=== PATIENT | male | born 1950 | race Caucasian/White ===

== ENCOUNTER 2024-08-19 11:17 | Inpatient (IN) | payer MEDICARE, OTHER ==
[~2024-08-19] VITALS: Ht 188 cm; Wt 103.4 kg
[~2024-08-19 11:17] MED LIST: ASCORBIC ACID500 MG PO; CLOPIDOGREL75 MG PO; CRESTOR10 MG PO; DIOVAN40 MG PO; GLIMEPIRIDE4 MG PO; INVOKANA PO; Insulin Glargine SQ; JANUVIA100 MG PO; LOSARTAN-HCTZ1 EAC2 PO; METFORMIN HCL500 MG PO; METOPROLOL SUCC25 MG PO; METOPROLOL TART50 MG PO; OZEMPIC0.25 MG/0. SC; PLAVIX75 MG PO; PREDNISONE20 MG PO; TESSALON PERLE100 MG PO; ZINC SULFATE50 MG PO; ZOFRAN4 MG PO
[2024-08-19 12:00] VITALS: PULSE 97; RESP 16; TEMP 99.3
[2024-08-19 12:43] LABS: BASOPHILS # (AUTO) 0.1 (0.0-0.1); BASOPHILS % 0.3 % (0.0-1.0); EOSINOPHILS % 0.1 % (0.0-6.0); HEMATOCRIT 42.8 % (38.2-49.6); HEMOGLOBIN 14.1 g/dL (14.0-18.0); LYMPHOCYTES # (AUTO) 1.4 (1.0-3.2); LYMPHOCYTES % 7.7 % (18.0-39.1); MEAN CORPUSCULAR HEMOGLOBIN 29.2 pg (28-32); MEAN CORPUSCULAR HGB CONC 32.9 g/dL (31-35); MEAN CORPUSCULAR VOLUME 88.6 fL (81-99); MONOCYTES # (AUTO) 1.4 (0.2-0.8); MONOCYTES % 7.7 % (4.4-11.3); NEUTROPHILS # (AUTO) 14.7 (2.1-6.9); NEUTROPHILS % 83.3 % (38.7-80.0); PLATELET COUNT 233 x10e3/uL (140-360); RED BLOOD COUNT 4.83 x10e6/uL (4.3-5.7); RED CELL DISTRIBUTION WIDTH 14.4 % (11.7-14.4); WHITE BLOOD COUNT 17.61 x10e3/uL (4.8-10.8)
[2024-08-19 13:02] LABS: ALBUMIN 2.9 g/dL (3.5-5.0); ALBUMIN/GLOBULIN RATIO 0.6 (0.8-2.0); ANION GAP 17.9 mmol/L (8-16); BILIRUBIN,TOTAL 2.2 mg/dL (0.2-1.2); CALCIUM 9.1 mg/dL (8.4-10.2); CREATININE, SERUM 2.11 mg/dL (0.72-1.25); POTASSIUM 3.9 mmol/L (3.5-5.1); TOTAL PROTEIN 7.4 g/dL (6.5-8.1)
[2024-08-19] MEDS: CEFEPIME 2 GM in SODIUM CHLORIDE 0.9% 100 ML IV ONE (13:38)
[2024-08-19 14:24] LABS: INR 1.23; PROTHROMBIN TIME 16.2 seconds (11.9-14.5)
[2024-08-19 14:25] LABS: PARTIAL THROMBOPLASTIN TIME 52.4 seconds (23.8-35.5)
[2024-08-19] MEDS: SODIUM CHLORIDE 0.9% 1000ML 2,470 ML IV SCH (14:33)
[2024-08-19] MEDS: VANCOMYCIN 1.25GM/250 ML (PEG) 250 ML IV ONE (14:46)
[2024-08-19] MEDS ORDERED: ONDANSETRON HCL INJ 2MG/ML 2ML 2 MG/ML VIAL IV PRN (15:00)
[2024-08-19] MEDS ORDERED: Morphine 4mg INJECTION 4 MG/ML INJ IV PRN (15:00)
[2024-08-19 18:23] VITALS: BP 131/82; PULSE 97; RESP 17; TEMP 99.2; O2SAT 99
[2024-08-19] MEDS: ACETAMINOPHEN 325 MG TAB PO ONE (18:31)
[2024-08-19] MEDS: SODIUM CHLORIDE 0.9% 1000ML 1,000 ML IV SCH (18:42)
[2024-08-19 19:58] VITALS: BP 126/63; PULSE 94; RESP 20; TEMP 101.8; O2SAT 97
[2024-08-19 20:00] VITALS: BP 126/63; PULSE 94; RESP 20; TEMP 101.8; O2SAT 97
[2024-08-19] MEDS ORDERED: DEXTROSE 50% SYRINGE 50 ML IV PRN (20:15)
[2024-08-19] MEDS: INSULIN LISPRO 100 UNIT/1 ML 3ML VIAL SQ SCH (21:00)
[2024-08-19] MEDS: BENZONATATE 100 MG CAP PO SCH (22:18)
[2024-08-19] MEDS: ACETAMINOPHEN 325 MG TAB PO PRN (22:24)
[2024-08-19 23:00] VITALS: BP 126/63; PULSE 94; RESP 20; TEMP 101.8
[2024-08-19] MEDS ORDERED: ALBUTEROL/IPRATROPIUM 3 ML NEB NEB PRN (23:45)
[2024-08-19] MEDS ORDERED: HYDROCODONE/APAP 10MG-325MG TAB PO PRN (23:45)
[2024-08-20] VITALS (8 sets, daily range): BP systolic 109–152; BP diastolic 59–69; PULSE 66–93; RESP 18–20; TEMP 97–99.7; O2SAT 95–98
[2024-08-20] MEDS: GABAPENTIN 100 MG CAP PO SCH (06:00)
[2024-08-20 07:06] LABS: BASOPHILS # (AUTO) 0.1 (0.0-0.1); BASOPHILS % 0.5 % (0.0-1.0); EOSINOPHILS # (AUTO) 0.1 (0.0-0.4); EOSINOPHILS % 0.5 % (0.0-6.0); HEMATOCRIT 36.9 % (38.2-49.6); LYMPHOCYTES # (AUTO) 0.7 (1.0-3.2); LYMPHOCYTES % 5.5 % (18.0-39.1); MEAN CORPUSCULAR HEMOGLOBIN 29.2 pg (28-32); MEAN CORPUSCULAR HGB CONC 32.5 g/dL (31-35); MEAN CORPUSCULAR VOLUME 89.8 fL (81-99); MONOCYTES # (AUTO) 0.8 (0.2-0.8); MONOCYTES % 6.9 % (4.4-11.3); NEUTROPHILS # (AUTO) 10.5 (2.1-6.9); PLATELET COUNT 182 x10e3/uL (140-360); RED BLOOD COUNT 4.11 x10e6/uL (4.3-5.7); RED CELL DISTRIBUTION WIDTH 14.4 % (11.7-14.4)
[2024-08-20 07:47] LABS: ANION GAP 16.4 mmol/L (8-16); CALCIUM 8.4 mg/dL (8.4-10.2); CREATININE, SERUM 1.57 mg/dL (0.72-1.25)
[2024-08-20 07:55] LABS: POTASSIUM 3.4 mmol/L (3.5-5.1)
[2024-08-20 08:02] LABS: CHOL/HDL RATIO 5.1 (3.9-4.7)
[2024-08-20] MEDS: METOPROLOL TARTRATE 50 MG TAB PO SCH (08:45)
[2024-08-20] MEDS: ZINC SULFATE 220 MG CAP PO SCH (08:46)
[2024-08-20] MEDS: ASCORBIC ACID 500 MG TAB PO SCH (08:46)
[2024-08-20] MEDS ORDERED: ZINC SULFATE 220 MG CAP PO SCH (09:00)
[2024-08-20] MEDS ORDERED: SIMVASTATIN 20 MG TAB PO SCH (09:00)
[2024-08-20] MEDS ORDERED: PROPOFOL IV EMULSION 10 MG/ML 20 ML VIAL ONE (13:13)
[2024-08-20] MEDS ORDERED: LIDOCAINE HCL 2% LOCAL INJ 5 ML SDV VIAL INJ ONE (13:13)
[2024-08-20] MEDS ORDERED: FENTANYL CITRATE/PF 100MCG/2 ML INJ ONE (13:13)
[2024-08-20] MEDS ORDERED: ONDANSETRON HCL INJ 2MG/ML 2ML 2 MG/ML VIAL ONE (13:28)
[2024-08-20] MEDS: Vancomycin IV 1 GM in SODIUM CHLORIDE 0.9% 250ML 250 ML IV SCH (14:27)
[2024-08-20] MEDS: ATORVASTATIN 40 MG TAB PO SCH (21:13)
[2024-08-20] MEDS: MELATONIN 5 MG TABLET PO PRN (22:02)
[2024-08-21] VITALS (18 sets, daily range): BP systolic 111–148; BP diastolic 53–69; PULSE 60–72; RESP 10–20; TEMP 96.4–98.2; O2SAT 94–100
[2024-08-21 06:07] LABS: BASOPHILS % 0.4 % (0.0-1.0); EOSINOPHILS # (AUTO) 0.2 (0.0-0.4); EOSINOPHILS % 1.4 % (0.0-6.0); HEMATOCRIT 34.3 % (38.2-49.6); HEMOGLOBIN 11.1 g/dL (14.0-18.0); LYMPHOCYTES % 9.2 % (18.0-39.1); MEAN CORPUSCULAR HEMOGLOBIN 29.2 pg (28-32); MEAN CORPUSCULAR HGB CONC 32.4 g/dL (31-35); MEAN CORPUSCULAR VOLUME 90.3 fL (81-99); MONOCYTES # (AUTO) 0.8 (0.2-0.8); NEUTROPHILS # (AUTO) 8.7 (2.1-6.9); NEUTROPHILS % 81.3 % (38.7-80.0); PLATELET COUNT 190 x10e3/uL (140-360); RED CELL DISTRIBUTION WIDTH 14.5 % (11.7-14.4)
[2024-08-21 06:33] LABS: ANION GAP 14.4 mmol/L (8-16); CALCIUM 8.4 mg/dL (8.4-10.2); CREATININE, SERUM 1.47 mg/dL (0.72-1.25)
[2024-08-21 06:42] LABS: POTASSIUM 3.4 mmol/L (3.5-5.1)
[2024-08-21] MEDS: POTASSIUM CHLORIDE 20 MEQ TAB CR PO ONE (18:54)
[2024-08-21] MEDS: LACTATED RINGER'S 1,000 ML INJ SCH (18:55)
[2024-08-22] VITALS (9 sets, daily range): BP systolic 120–143; BP diastolic 60–87; PULSE 65–76; RESP 18–20; TEMP 97.6–98.4; O2SAT 93–100
[2024-08-22 06:24] LABS: ANION GAP 15.4 mmol/L (8-16); CALCIUM 8.1 mg/dL (8.4-10.2); CREATININE, SERUM 1.34 mg/dL (0.72-1.25)
[2024-08-22 06:48] LABS: POTASSIUM 3.4 mmol/L (3.5-5.1)
[2024-08-22 08:17] LABS: ABG HCO3 22 mmol/L (22-26); ABG PCO2 38 mmHg (35-45); ABG PH 7.36 (7.35-7.45); ABG PO2 69 mmHg (80-105); ABG TCO2 23
[2024-08-22] MEDS: CLOPIDOGREL BISULFATE 75 MG TAB PO SCH (09:16)
[2024-08-22 16:13] LABS: BILIRUBIN,URINE SMALL (NEGATIVE); CLARITY,URINE CLEAR (CLEAR); COLOR,URINE YELLOW (YELLOW); GLUCOSE, URINE 500 (NEGATIVE); KETONES,URINE TRACE (NEGATIVE); LEUKOCYTE ESTERASE ,URINE NEGATIVE (NEGATIVE); NITRITE,URINE NEGATIVE (NEGATIVE); PH,URINE 5.5 (5 - 7); PROTEIN,URINE DIPSTICK 2+ (NEGATIVE); URINE UROBILINOGEN 2 mg/dL (0.2 - 1)
[2024-08-22 16:18] LABS: RBC,URINE 0-5 /HPF (0-5); WBC,URINE (MAN) 0-5 /HPF (0-5)
[2024-08-22 16:19] LABS: AMORPHOUS SEDIMENT,URINE FEW; BACTERIA,URINE FEW /HPF; EPITHELIAL CELLS,URINE RARE /LPF
[2024-08-22 16:20] LABS: URIC ACID CRYSTALS,URINE FEW
[2024-08-22 17:06] LABS: EOSINOPHIL SMEAR,URINE NONE SEEN (NONE SEEN)
[2024-08-23] VITALS (7 sets, daily range): BP systolic 126–143; BP diastolic 56–71; PULSE 67–74; RESP 17–20; TEMP 97.9–98.6; O2SAT 96–99
[2024-08-23] MEDS: ASPIRIN 81 MG ENTERIC COATED PO SCH (09:00)
[2024-08-23] MEDS: HEPARIN SOD (PORCINE) 1000 UNIT/ML 30ML ONE (09:13)
[2024-08-23] MEDS: SODIUM CHLORIDE 0.9% 1000ML 2,000 ML ONE (09:14)
[2024-08-23] MEDS: HEPARIN SOD/SOD CHLORIDE 2,000 ML ONE (09:14)
[2024-08-23] MEDS: NITROGLYCERIN/D5W 200 MCG/ML 250 ML ONE (09:14)
[2024-08-23] MEDS: VERAPAMIL HCL 2.5 MG/ML 2 ML VIAL ONE (09:14)
[2024-08-23] MEDS: IOPAMIDOL 370 MG/ML 100 ML INFUS..BTL INJ ONE ×2 (09:15→09:16)
[2024-08-23] MEDS: MIDAZOLAM HCL 2 MG/2 ML VIAL ONE ×3 (09:15→09:16)
[2024-08-23] MEDS: LIDOCAINE HCL 2% LOCAL 20 ML VIAL ONE (09:15)
[2024-08-23] MEDS: FENTANYL CITRATE/PF 100MCG/2 ML INJ ONE ×2 (09:15→09:16)
[2024-08-23] MEDS: ASPIRIN 325 MG TAB ONE (09:16)
[2024-08-23] MEDS: CLOPIDOGREL BISULFATE 75 MG TAB ONE (09:16)
[2024-08-23] MEDS ORDERED: PROPOFOL IV EMULSION 10 MG/ML 20 ML VIAL ONE (11:24)
[2024-08-23] MEDS ORDERED: LIDOCAINE HCL 2% LOCAL INJ 5 ML SDV VIAL INJ ONE (11:24)
[2024-08-23] MEDS ORDERED: FENTANYL CITRATE/PF 100MCG/2 ML INJ ONE (11:25)
[2024-08-23] MEDS ORDERED: SEVOFLURANE INHAL SOLN 250 ML PEN BTL ONE (11:31)
[2024-08-23] MEDS ORDERED: MIDAZOLAM HCL 2 MG/2 ML VIAL ONE (13:16)
[2024-08-23] MEDS: SODIUM CHLORIDE 0.9% 100 ML ONE (15:29)
[2024-08-23] MEDS: PIPERACILLIN/TAZOBACTAM 3.375 GM VIAL ONE (15:29)
[2024-08-23] MEDS: POTASSIUM CHLORIDE 20 MEQ TAB CR PO ONE (18:41)
[2024-08-23] MEDS: SODIUM BICARBONATE 650 MG TAB PO SCH (18:41)
[2024-08-24] VITALS (9 sets, daily range): BP systolic 118–145; BP diastolic 62–86; PULSE 57–70; RESP 17–19; TEMP 97.1–97.7; O2SAT 98–99
[2024-08-24 06:47] LABS: ANION GAP 16.3 mmol/L (8-16); CREATININE, SERUM 1.23 mg/dL (0.72-1.25); POTASSIUM 4.3 mmol/L (3.5-5.1)
[2024-08-24] MEDS: SODIUM BICARBONATE 650 MG TAB PO SCH (09:16)
[2024-08-24] MEDS ORDERED: GABAPENTIN300 MG PO (17:32)
[2024-08-24] MEDS ORDERED: FLOMAX0.4 MG PO (17:33)
[2024-08-24] MEDS ORDERED: SYNJARDY 12.5-1 EACH (17:37)
[2024-08-25] VITALS (10 sets, daily range): BP systolic 126–155; BP diastolic 58–69; PULSE 47–68; RESP 18–20; TEMP 95.7–98.3; O2SAT 95–100
[2024-08-25 06:08] LABS: BASOPHILS # (AUTO) 0.1 (0.0-0.1); BASOPHILS % 0.6 % (0.0-1.0); EOSINOPHILS # (AUTO) 0.2 (0.0-0.4); HEMATOCRIT 35.7 % (38.2-49.6); HEMOGLOBIN 11.5 g/dL (14.0-18.0); LYMPHOCYTES # (AUTO) 1.8 (1.0-3.2); LYMPHOCYTES % 16.5 % (18.0-39.1); MEAN CORPUSCULAR HEMOGLOBIN 28.6 pg (28-32); MEAN CORPUSCULAR HGB CONC 32.2 g/dL (31-35); MEAN CORPUSCULAR VOLUME 88.8 fL (81-99); MONOCYTES # (AUTO) 0.7 (0.2-0.8); NEUTROPHILS % 73.5 % (38.7-80.0); PLATELET COUNT 323 x10e3/uL (140-360); RED BLOOD COUNT 4.02 x10e6/uL (4.3-5.7); RED CELL DISTRIBUTION WIDTH 14.7 % (11.7-14.4)
[2024-08-25 06:51] LABS: CALCIUM 8.7 mg/dL (8.4-10.2); CREATININE, SERUM 1.5 mg/dL (0.72-1.25)
[2024-08-25] MEDS ORDERED: HYDRALAZINE HCL 20 MG/ML VIAL IV PRN (11:30)
[2024-08-25] MEDS: INSULIN LISPRO 100 UNIT/1 ML 3ML VIAL SQ SCH (11:54)
[2024-08-25] MEDS: NIFEDIPINE CR 30 MG TAB PO ONE (12:33)
[2024-08-25] MEDS: GABAPENTIN 300 MG CAP PO SCH (16:28)
[2024-08-25] MEDS: TAMSULOSIN HCL 0.4 MG CAP PO SCH (16:29)
[2024-08-25] MEDS: INSULIN GLARGINE 100 UNITS/ML VIAL SQ SCH (21:27)
[2024-08-26] VITALS (9 sets, daily range): BP systolic 122–155; BP diastolic 65–81; PULSE 64–76; RESP 16–18; TEMP 97.3–99; O2SAT 96–99
[2024-08-26] MEDS: METOPROLOL TARTRATE 25 MG TAB PO SCH (05:42)
[2024-08-26 06:21] LABS: ANION GAP 12.5 mmol/L (8-16); CALCIUM 8.2 mg/dL (8.4-10.2); CREATININE, SERUM 1.18 mg/dL (0.72-1.25); POTASSIUM 3.5 mmol/L (3.5-5.1)
[2024-08-26] MEDS: SODIUM BICARBONATE 650 MG TAB PO SCH (10:07)
[2024-08-26] MEDS: NIFEDIPINE CR 30 MG TAB PO SCH (10:08)
[2024-08-26] MEDS: POTASSIUM CHLORIDE 20 MEQ TAB CR PO ONE (21:36)
[2024-08-26] MEDS: CEFTRIAXONE 2 GM in SODIUM CHLORIDE 0.9% 100 ML IV SCH (21:38)
[2024-08-26] MEDS: DIPHENHYDRAMINE HCL 30 GM TUBE TOP PRN (21:49)
[2024-08-27] VITALS (8 sets, daily range): BP systolic 138–153; BP diastolic 64–82; PULSE 63–78; RESP 18–20; TEMP 97.7–98.8; O2SAT 95–99
[2024-08-27 09:16] LABS: ANION GAP 14.1 mmol/L (8-16); CALCIUM 8.7 mg/dL (8.4-10.2); CREATININE, SERUM 0.62 mg/dL (0.72-1.25); POTASSIUM 4.1 mmol/L (3.5-5.1)
[2024-08-28] VITALS (11 sets, daily range): BP systolic 124–158; BP diastolic 60–80; PULSE 64–79; RESP 18; TEMP 97.3–99.2; O2SAT 95–100
[2024-08-29] VITALS (9 sets, daily range): BP systolic 129–146; BP diastolic 64–79; PULSE 65–78; RESP 18–21; TEMP 97.1–97.9; O2SAT 96–100
[2024-08-29 10:28] LABS: BASOPHILS # (AUTO) 0.1 (0.0-0.1); BASOPHILS % 0.5 % (0.0-1.0); EOSINOPHILS # (AUTO) 0.2 (0.0-0.4); EOSINOPHILS % 1.8 % (0.0-6.0); HEMATOCRIT 39.9 % (38.2-49.6); HEMOGLOBIN 12.9 g/dL (14.0-18.0); LYMPHOCYTES # (AUTO) 1.4 (1.0-3.2); LYMPHOCYTES % 14.4 % (18.0-39.1); MEAN CORPUSCULAR HEMOGLOBIN 28.3 pg (28-32); MEAN CORPUSCULAR HGB CONC 32.3 g/dL (31-35); MEAN CORPUSCULAR VOLUME 87.5 fL (81-99); MONOCYTES # (AUTO) 0.6 (0.2-0.8); MONOCYTES % 5.9 % (4.4-11.3); NEUTROPHILS # (AUTO) 7.2 (2.1-6.9); NEUTROPHILS % 75.8 % (38.7-80.0); PLATELET COUNT 311 x10e3/uL (140-360); RED BLOOD COUNT 4.56 x10e6/uL (4.3-5.7); RED CELL DISTRIBUTION WIDTH 14.4 % (11.7-14.4); WHITE BLOOD COUNT 9.53 x10e3/uL (4.8-10.8)
[2024-08-29 10:49] LABS: ANION GAP 14.8 mmol/L (8-16); CALCIUM 8.9 mg/dL (8.4-10.2); CREATININE, SERUM 1.01 mg/dL (0.72-1.25); POTASSIUM 3.8 mmol/L (3.5-5.1)
[2024-08-29] MEDS: CEFTRIAXONE 2 GM in SODIUM CHLORIDE 0.9% 100 ML IV SCH (16:34)
[2024-08-29] MEDS: SODIUM CHLORIDE 0.9% 250ML 250 ML ONE (17:00)
[2024-08-30 06:10] LABS: ANION GAP 12.6 mmol/L (8-16); CALCIUM 8.5 mg/dL (8.4-10.2); CREATININE, SERUM 1.02 mg/dL (0.72-1.25); POTASSIUM 3.6 mmol/L (3.5-5.1)
[2024-08-30 07:37] VITALS: BP 139/77; PULSE 76; RESP 18; TEMP 98; O2SAT 98
[2024-08-30 07:46] VITALS: PULSE 72; RESP 18; O2SAT 98
[2024-08-30 09:00] VITALS: BP 139/77; PULSE 76; RESP 18; TEMP 98; O2SAT 98
[2024-08-30 11:42] VITALS: BP 144/69; PULSE 65; RESP 18; TEMP 97.7; O2SAT 98
[2024-08-30 15:48] VITALS: BP 134/72; PULSE 68; RESP 18; TEMP 97.7; O2SAT 98
[2024-08-30] MEDS: APIXABAN 2.5 MG TABLET PO SCH (17:00)
[2024-08-30 17:59] VITALS: BP 134/72
[2024-08-30] MEDS: HYDRALAZINE HCL 25 MG TAB PO SCH (17:59)
== END 2024-08-30 20:20 | DRG 853 ==
LOC: ER 12:25 → ERHOLD 14:56 → MERGE 14:56 → MED/SURG2 18:12
PROVIDERS: ADMIT Internal Medicine; ATTEND Internal Medicine
PROC: 3E0333Z Introduction of Anti-inflammatory into Peripheral Vein, Percutaneous Approach (ICD-10-PCS; 2024-08-19)
PROC: 0Y6R0Z0 Detachment at Right 2nd Toe, Complete, Open Approach (ICD-10-PCS; principal; 2024-08-20 13:18)
PROC: 04CP3ZZ Extirpation of Matter from Right Anterior Tibial Artery, Percutaneous Approach (ICD-10-PCS; 2024-08-21)
PROC: 047P3ZZ Dilation of Right Anterior Tibial Artery, Percutaneous Approach (ICD-10-PCS; 2024-08-21)
PROC: 4A133R1 Monitoring of Arterial Saturation, Peripheral, Percutaneous Approach (ICD-10-PCS; 2024-08-21)
PROC: B41D1ZZ Fluoroscopy of Aorta and Bilateral Lower Extremity Arteries using Low Osmolar Contrast (ICD-10-PCS; 2024-08-21)
PROC: 0Y6M0ZC Detachment at Right Foot, Partial 3rd Ray, Open Approach (ICD-10-PCS; 2024-08-23)
PROC: 02HV33Z Insertion of Infusion Device into Superior Vena Cava, Percutaneous Approach (ICD-10-PCS; 2024-08-27)
DX: A40.8 Other streptococcal sepsis (principal); A48.0 Gas gangrene; E11.52 Type 2 diabetes mellitus with diabetic peripheral angiopathy with gangrene; E87.20 Acidosis, unspecified; N17.9 Acute kidney failure, unspecified; E11.69 Type 2 diabetes mellitus with other specified complication; M86.171 Other acute osteomyelitis, right ankle and foot; L02.611 Cutaneous abscess of right foot; E11.621 Type 2 diabetes mellitus with foot ulcer; L97.518 Non-pressure chronic ulcer of other part of right foot with other specified severity; E87.1 Hypo-osmolality and hyponatremia; E11.22 Type 2 diabetes mellitus with diabetic chronic kidney disease; E11.42 Type 2 diabetes mellitus with diabetic polyneuropathy; I12.9 Hypertensive chronic kidney disease with stage 1 through stage 4 chronic kidney disease, or unspecified chronic kidney disease; N18.31 Chronic kidney disease, stage 3a; D63.1 Anemia in chronic kidney disease; E78.5 Hyperlipidemia, unspecified; E87.6 Hypokalemia; E86.0 Dehydration; I25.10 Atherosclerotic heart disease of native coronary artery without angina pectoris; R21 Rash and other nonspecific skin eruption; Z95.1 Presence of aortocoronary bypass graft; Z90.49 Acquired absence of other specified parts of digestive tract
CPT/HCPCS: 36415; 37228; 37229; 75630; 75716; 76000; 76770; 76937; 80048; 80053; 80061; 80202; 81001; 81015; 82805; 82948; 83036; 83605; 85025; 85610; 85730; 87040; 87071; 87075; 87205; 88304; 88305; 88311; 93005; 93926; 94799; 97605; 97606; 99152; 99153; 99252; 99284; C1724; C1725; C1760; C1769; C1887; C1894; J0692; J0696; J1644; J2003; J2250; J2405; J2543; J7030; J7050; Q9967

== ENCOUNTER 2024-12-28 17:39 | Inpatient (IN) | payer MEDICARE ==
[~2024-12-28] VITALS: Ht 188 cm; Wt 103.7 kg
[~2024-12-28 17:39] MED LIST changes: +FLOMAX0.4 MG PO; +GABAPENTIN300 MG PO; +SYNJARDY 12.5-1 EACH
[2024-12-28] MEDS: Vancomycin IV 1.25 GM in SODIUM CHLORIDE 0.9% 250ML 250 ML IV SCH (19:01)
[2024-12-28 19:34] LABS: BASOPHILS # (AUTO) 0.1 (0.0-0.1); BASOPHILS % 0.7 % (0.0-1.0); EOSINOPHILS # (AUTO) 0.3 (0.0-0.4); EOSINOPHILS % 2.6 % (0.0-6.0); HEMATOCRIT 42.4 % (38.2-49.6); HEMOGLOBIN 13.1 g/dL (14.0-18.0); LYMPHOCYTES # (AUTO) 2.1 (1.0-3.2); LYMPHOCYTES % 21.5 % (18.0-39.1); MEAN CORPUSCULAR HEMOGLOBIN 27.2 pg (28-32); MEAN CORPUSCULAR HGB CONC 30.9 g/dL (31-35); MEAN CORPUSCULAR VOLUME 88.1 fL (81-99); MONOCYTES # (AUTO) 0.8 (0.2-0.8); MONOCYTES % 8.2 % (4.4-11.3); NEUTROPHILS # (AUTO) 6.4 (2.1-6.9); NEUTROPHILS % 66.4 % (38.7-80.0); PLATELET COUNT 361 x10e3/uL (140-360); RED BLOOD COUNT 4.81 x10e6/uL (4.3-5.7); WHITE BLOOD COUNT 9.57 x10e3/uL (4.8-10.8)
[2024-12-28 19:56] LABS: ALBUMIN 3.2 g/dL (3.5-5.0); ALBUMIN/GLOBULIN RATIO 0.7 (0.8-2.0); ANION GAP 16.6 mmol/L (8-16); BILIRUBIN,TOTAL 0.6 mg/dL (0.2-1.2); CALCIUM 9.2 mg/dL (8.4-10.2); CREATININE, SERUM 1.64 mg/dL (0.72-1.25); POTASSIUM 3.6 mmol/L (3.5-5.1); TOTAL PROTEIN 7.8 g/dL (6.5-8.1)
[2024-12-28] MEDS ORDERED: SODIUM CHLORIDE FLUSH 10 ML SYR INJ PRN (20:30)
[2024-12-28] MEDS ORDERED: ONDANSETRON HCL INJ 2MG/ML 2ML 2 MG/ML VIAL IV PRN (20:30)
[2024-12-28 20:39] VITALS: PULSE 78; RESP 19; TEMP 98.6
[2024-12-28 21:00] VITALS: BP 132/71; PULSE 70; RESP 20; TEMP 97; O2SAT 100
[2024-12-28 21:46] VITALS: BP 132/71; PULSE 70; RESP 18; TEMP 97; O2SAT 98
[2024-12-28 22:00] VITALS: BP 132/71; PULSE 70; RESP 18; TEMP 97; O2SAT 98
[2024-12-29] VITALS (7 sets, daily range): BP systolic 119–137; BP diastolic 66–80; PULSE 64–85; RESP 18–20; TEMP 97.1–98; O2SAT 97–100
[2024-12-29 06:09] LABS: BASOPHILS # (AUTO) 0.1 (0.0-0.1); BASOPHILS % 0.9 % (0.0-1.0); EOSINOPHILS # (AUTO) 0.3 (0.0-0.4); EOSINOPHILS % 3.1 % (0.0-6.0); HEMOGLOBIN 11.5 g/dL (14.0-18.0); LYMPHOCYTES % 23.9 % (18.0-39.1); MEAN CORPUSCULAR HEMOGLOBIN 27.4 pg (28-32); MEAN CORPUSCULAR HGB CONC 31.9 g/dL (31-35); MEAN CORPUSCULAR VOLUME 85.9 fL (81-99); MONOCYTES # (AUTO) 0.7 (0.2-0.8); NEUTROPHILS # (AUTO) 5.2 (2.1-6.9); NEUTROPHILS % 63.6 % (38.7-80.0); PLATELET COUNT 287 x10e3/uL (140-360); RED BLOOD COUNT 4.19 x10e6/uL (4.3-5.7); RED CELL DISTRIBUTION WIDTH 14.8 % (11.7-14.4); WHITE BLOOD COUNT 8.16 x10e3/uL (4.8-10.8)
[2024-12-29 06:31] LABS: ALBUMIN 2.6 g/dL (3.5-5.0); ALBUMIN/GLOBULIN RATIO 0.7 (0.8-2.0); ANION GAP 14.7 mmol/L (8-16); BILIRUBIN,TOTAL 0.7 mg/dL (0.2-1.2); CALCIUM 8.5 mg/dL (8.4-10.2); CREATININE, SERUM 1.41 mg/dL (0.72-1.25); POTASSIUM 3.7 mmol/L (3.5-5.1); TOTAL PROTEIN 6.5 g/dL (6.5-8.1)
[2024-12-29] MEDS ORDERED: MAGNESIUM HYDROXIDE 30 ML UDC PO PRN (09:45)
[2024-12-29] MEDS ORDERED: HYDROCODONE/APAP 10MG-325MG TAB PO PRN (09:45)
[2024-12-29] MEDS ORDERED: HYDRALAZINE HCL 20 MG/ML VIAL IV PRN (09:45)
[2024-12-29] MEDS ORDERED: ONDANSETRON HCL INJ 2MG/ML 2ML 2 MG/ML VIAL IV PRN (09:45)
[2024-12-29] MEDS ORDERED: DEXTROSE 50% SYRINGE 50 ML IV PRN (09:45)
[2024-12-29] MEDS ORDERED: ACETAMINOPHEN 325 MG TAB PO PRN (09:45)
[2024-12-29] MEDS: INSULIN LISPRO 100 UNIT/1 ML 3ML VIAL SQ SCH (11:30)
[2024-12-29] MEDS: SODIUM CHLORIDE 0.9% 250ML 250 ML ONE (12:34)
[2024-12-29] MEDS: ENOXAPARIN SOD INJ 40 MG/0.4 ML SYR SC SCH (17:00)
[2024-12-29] MEDS: ENOXAPARIN 30 MG/0.3 ML SYR SC ONE (17:18)
[2024-12-29] MEDS: TAMSULOSIN HCL 0.4 MG CAP PO SCH (17:19)
[2024-12-29] MEDS: SENNA-S TABLET PO SCH (17:19)
[2024-12-29] MEDS: GABAPENTIN 300 MG CAP PO SCH (17:19)
[2024-12-29] MEDS: METOPROLOL TARTRATE 50 MG TAB PO SCH (17:20)
[2024-12-29] MEDS: SIMVASTATIN 20 MG TAB PO SCH (20:44)
[2024-12-30] VITALS (7 sets, daily range): BP systolic 112–131; BP diastolic 63–75; PULSE 56–72; RESP 18–21; TEMP 97.2–98.9; O2SAT 98–100
[2024-12-30 05:52] LABS: BASOPHILS # (AUTO) 0.1 (0.0-0.1); BASOPHILS % 0.7 % (0.0-1.0); EOSINOPHILS # (AUTO) 0.3 (0.0-0.4); EOSINOPHILS % 3.3 % (0.0-6.0); HEMATOCRIT 36.7 % (38.2-49.6); HEMOGLOBIN 11.4 g/dL (14.0-18.0); LYMPHOCYTES # (AUTO) 1.4 (1.0-3.2); LYMPHOCYTES % 17.9 % (18.0-39.1); MEAN CORPUSCULAR HGB CONC 31.1 g/dL (31-35); MEAN CORPUSCULAR VOLUME 86.8 fL (81-99); MONOCYTES # (AUTO) 0.6 (0.2-0.8); MONOCYTES % 8.1 % (4.4-11.3); NEUTROPHILS # (AUTO) 5.3 (2.1-6.9); NEUTROPHILS % 69.5 % (38.7-80.0); PLATELET COUNT 276 x10e3/uL (140-360); RED BLOOD COUNT 4.23 x10e6/uL (4.3-5.7); RED CELL DISTRIBUTION WIDTH 14.9 % (11.7-14.4); WHITE BLOOD COUNT 7.66 x10e3/uL (4.8-10.8)
[2024-12-30 06:30] LABS: ANION GAP 14.7 mmol/L (8-16); CALCIUM 8.5 mg/dL (8.4-10.2); CREATININE, SERUM 1.53 mg/dL (0.72-1.25); POTASSIUM 3.7 mmol/L (3.5-5.1)
[2024-12-30] MEDS: CLOPIDOGREL BISULFATE 75 MG TAB PO SCH (09:29)
[2024-12-30] MEDS: Vancomycin IV 1.75 GM in SODIUM CHLORIDE 0.9% 500ML 500 ML IV SCH (11:18)
[2024-12-31] VITALS (7 sets, daily range): BP systolic 116–138; BP diastolic 55–69; PULSE 59–72; RESP 18–20; TEMP 97.6–98.6; O2SAT 96–100
[2024-12-31] MEDS ORDERED: POVIDONE IODINE 10% 120 ML BTL EXT PRN (13:45)
[2024-12-31] MEDS: DAPTOMYCIN 500mg 10ML 500 MG in SODIUM CHLORIDE 0.9% 100 ML IV SCH (20:22)
[2024-12-31] MEDS: SODIUM CHLORIDE 0.9% 250ML 250 ML ONE (21:37)
[2024-12-31] MEDS: MEROPENEM 1 GM in SODIUM CHLORIDE 0.9% 100 ML IV SCH (21:39)
[2025-01-01] VITALS: BP 145/67; PULSE 65; RESP 20; TEMP 98.1; O2SAT 98
[2025-01-01 04:00] VITALS: BP 122/69; PULSE 66; RESP 18; TEMP 98.2; O2SAT 96
[2025-01-01 08:41] VITALS: BP 124/84; PULSE 77; RESP 20; TEMP 97.7; O2SAT 96
[2025-01-01 09:30] VITALS: BP 124/84; PULSE 77; RESP 20; TEMP 97.7; O2SAT 96
[2025-01-01 13:15] VITALS: BP 143/70; PULSE 63; RESP 20; TEMP 97.7; O2SAT 100
[2025-01-01] MEDS ORDERED: ONDANSETRON HCL 4 MG ORAL DISINTEGRATING TAB PO PRN (16:45)
[2025-01-01 17:31] VITALS: BP 162/74; PULSE 60; RESP 18; TEMP 97.8; O2SAT 98
== END 2025-01-01 18:00 | disposition home or self-care (01) | DRG 638 ==
LOC: ER 18:06 → ERHOLD 20:17 → MED/SURG 21:11
PROVIDERS: ADMIT Internal Medicine; ATTEND Internal Medicine
PROC: 05HY33Z Insertion of Infusion Device into Upper Vein, Percutaneous Approach (ICD-10-PCS; principal; 2024-12-29)
PROC: 3E03329 Introduction of Other Anti-infective into Peripheral Vein, Percutaneous Approach (ICD-10-PCS; 2024-12-29)
DX: E11.621 Type 2 diabetes mellitus with foot ulcer (principal); L03.115 Cellulitis of right lower limb; L97.416 Non-pressure chronic ulcer of right heel and midfoot with bone involvement without evidence of necrosis; M86.9 Osteomyelitis, unspecified; M20.41 Other hammer toe(s) (acquired), right foot; E11.42 Type 2 diabetes mellitus with diabetic polyneuropathy; I25.10 Atherosclerotic heart disease of native coronary artery without angina pectoris; E78.5 Hyperlipidemia, unspecified; N40.0 Benign prostatic hyperplasia without lower urinary tract symptoms; E11.51 Type 2 diabetes mellitus with diabetic peripheral angiopathy without gangrene; E11.22 Type 2 diabetes mellitus with diabetic chronic kidney disease; I12.9 Hypertensive chronic kidney disease with stage 1 through stage 4 chronic kidney disease, or unspecified chronic kidney disease; N17.9 Acute kidney failure, unspecified; E86.0 Dehydration; N18.30 Chronic kidney disease, stage 3 unspecified; E11.69 Type 2 diabetes mellitus with other specified complication; Z79.84 Long term (current) use of oral hypoglycemic drugs; Z79.4 Long term (current) use of insulin; Z79.02 Long term (current) use of antithrombotics/antiplatelets; Z79.01 Long term (current) use of anticoagulants; Z95.1 Presence of aortocoronary bypass graft
CPT/HCPCS: 36415; 36569; 71045; 80048; 80053; 82948; 83036; 84443; 85025; 86140; 87040; 93005; 93306; 96372; 99252; 99284; J1650; J2185; J2543; J7040; J7050

== ENCOUNTER → 2025-01-31 | Day surgery (SDC) | payer MEDICARE ==
[2025-01-29 15:38] LABS: BASOPHILS % 0.5 % (0.0-1.0); EOSINOPHILS % 4.3 % (0.0-6.0); LYMPHOCYTES % 21.3 % (18.0-39.1); MONOCYTES % 8.9 % (4.4-11.3); NEUTROPHILS % 64.6 % (38.7-80.0); RED CELL DISTRIBUTION WIDTH 15.9 % (11.7-14.4)
[2025-01-29 16:04] LABS: EST GLOMERULAR FILTRATION RATE 47.0 ML/MIN (>=60)
[~2025-01-31] MED LIST changes: +ACETAMINOPHEN 1000 MG/100 ML 100 ML IV ONE; +DEXAMETHASONE SOD PHOS INJ 4 MG/ML SDV ONE; +EPHEDRINE SULFATE INJ 50 MG/ML VIAL ONE; +FENTANYL CITRATE/PF 100MCG/2 ML INJ ONE; +LIDOCAINE HCL 2% LOCAL INJ 5 ML SDV VIAL INJ ONE; +MIDAZOLAM HCL 2 MG/2 ML VIAL ONE; +ONDANSETRON HCL INJ 2MG/ML 2ML 2 MG/ML VIAL ONE; +PROPOFOL IV EMULSION 50 ML IV ONE; +SODIUM CHLORIDE 0.9% 100 ML ONE
[2025-01-31] MEDS: LACTATED RINGER'S 1,000 ML ONE (08:21)
[2025-01-31 09:45] VITALS: TEMP 97
[2025-01-31 10:15] VITALS: BP 129/70; PULSE 68; RESP 16; O2SAT 94
== END | disposition home or self-care (01) ==
LOC: OR 05:26
PROVIDERS: ATTEND Podiatrist Foot Surgery
DX: M86.671 Other chronic osteomyelitis, right ankle and foot (principal); M20.11 Hallux valgus (acquired), right foot; T14.8XXA Other injury of unspecified body region, initial encounter; G47.33 Obstructive sleep apnea (adult) (pediatric); E11.9 Type 2 diabetes mellitus without complications; I25.810 Atherosclerosis of coronary artery bypass graft(s) without angina pectoris; I10 Essential (primary) hypertension; E78.5 Hyperlipidemia, unspecified; X58.XXXA Exposure to other specified factors, initial encounter; Z79.02 Long term (current) use of antithrombotics/antiplatelets; Z79.84 Long term (current) use of oral hypoglycemic drugs; Z79.899 Other long term (current) drug therapy; Z95.1 Presence of aortocoronary bypass graft; Z95.5 Presence of coronary angioplasty implant and graft
CPT/HCPCS: 15275; 15276; 28292; 36415 ×2; 71046; 80048; 82948; 85025; 87071; 87075; 87205; 88307; 88311; 93005; C1713; J0131; J1100; J2003; J2250; J2405; J2704; J3010; J7050; J7121; Q4104

== ENCOUNTER → 2025-02-06 | Outpatient (RCR) | payer MEDICARE ==
[~2025-02-06] MED LIST changes: -ACETAMINOPHEN 1000 MG/100 ML 100 ML IV ONE; -DEXAMETHASONE SOD PHOS INJ 4 MG/ML SDV ONE; -EPHEDRINE SULFATE INJ 50 MG/ML VIAL ONE; -FENTANYL CITRATE/PF 100MCG/2 ML INJ ONE; -LIDOCAINE HCL 2% LOCAL INJ 5 ML SDV VIAL INJ ONE; -MIDAZOLAM HCL 2 MG/2 ML VIAL ONE; -ONDANSETRON HCL INJ 2MG/ML 2ML 2 MG/ML VIAL ONE; -PROPOFOL IV EMULSION 50 ML IV ONE; -SODIUM CHLORIDE 0.9% 100 ML ONE
== END ==
LOC: WCC 01-09 15:23
PROVIDERS: ATTEND Internal Medicine Infectious Disease
DX: E11.621 Type 2 diabetes mellitus with foot ulcer (principal); L97.514 Non-pressure chronic ulcer of other part of right foot with necrosis of bone; L97.412 Non-pressure chronic ulcer of right heel and midfoot with fat layer exposed
CPT/HCPCS: 36415 ×6; 82948 ×6; 97602 ×5; 99212; 99213 ×5; G0277 ×6

== ENCOUNTER 2025-03-07 15:00 | Outpatient (RCR) | payer MEDICARE ==
[~2025-03-07 15:00] MED LIST changes: +MINERAL OIL/PETROLAT/GLYCERI 2OZ CRM ONE
== END 2025-03-09 ==
LOC: WCC 15:00
PROVIDERS: ATTEND Internal Medicine Infectious Disease
DX: E11.621 Type 2 diabetes mellitus with foot ulcer (principal); M86.671 Other chronic osteomyelitis, right ankle and foot; L97.514 Non-pressure chronic ulcer of other part of right foot with necrosis of bone
CPT/HCPCS: 36415 ×17; 82948 ×17; 99213 ×7; G0277 ×10

== ENCOUNTER 2025-04-07 10:30 | Outpatient (RCR) | payer MEDICARE ==
[~2025-04-07 10:30] MED LIST changes: -MINERAL OIL/PETROLAT/GLYCERI 2OZ CRM ONE
== END 2025-04-08 ==
LOC: WCC 10:30
PROVIDERS: ATTEND Internal Medicine Infectious Disease
DX: E11.621 Type 2 diabetes mellitus with foot ulcer (principal); L97.514 Non-pressure chronic ulcer of other part of right foot with necrosis of bone; L97.412 Non-pressure chronic ulcer of right heel and midfoot with fat layer exposed
CPT/HCPCS: 36415 ×6; 82948 ×6; 99213 ×9; G0277 ×6